=== PATIENT | female | born 1985 | race Caucasian/White ===

== ENCOUNTER → 2017-01-26 | Outpatient (CLI) | payer OTHER ==
[2017-01-26 11:30] LABS: CH 32.7; CHCM 33.6; HCT 37.3 % (34.0-46.0); HDW 3.13; HGB 12.5 gm/dL (11.4-16.0); MCH 32.8 pg (25.0-35.0); MCHC 33.5 g/dL (31.0-37.0); MCV 98.1 fL (80.0-100.0); Mean Platelet Volume 6.5; RDW 14.1 % (11.5-15.5); WBC 8.3 k/uL (3.8-10.6)
[2017-01-26 11:57] LABS: Non-African American GFR(MDRD) >60 (>60 ml/min/1.73 sqM)
== END | disposition home or self-care (01) ==
LOC: LABWHC1 10:05
PROVIDERS: ATTEND Obstetrics & Gynecology
DX: Z34.02 Encounter for supervision of normal first pregnancy, second trimester (principal); Z3A.00 Weeks of gestation of pregnancy not specified
CPT/HCPCS: 36415; 82565; 82950; 85027; 86780

== ENCOUNTER → 2018-02-28 | Outpatient (CLI) | payer OTHER ==
--- NOTE | 2018-02-28 16:10 | US ---
EXAMINATION TYPE: Transabdominal DATE OF EXAM: 07/30/17 COMPARISON: NONE CLINICAL HISTORY: Z36 CONFIRM DATES. EXAM PERFORMED: Transabdominal (TA) EXAM MEASUREMENTS: GESTATIONAL AGE / DATING Physician Established: Not yet established Dates by LMP: (9 weeks/5 days) EDC: 09/28/2017 Dates by First Scan: No previous this is first scan Dates by Current Scan for: (9 weeks/0 days) EDC: 10/03/2017 MATERNAL ANATOMY Uterus: 10.5 x 6.5 x 7.3 cm Right Ovary: 3.3 x 2.6 x 3.1 cm Left Ovary: 3.9 x 2.3 x 2.0 cm Post CDS / Adnexa: wnl Presence of free fluid: none GESTATION / SURVEY CRL: 2.3 cm (9 weeks/0 days) Yolk Sac (normal less than 6mm): 0.3 cm Heart Rate: 159 bpm Rhythm: Normal IUP: Viable IUP Date of LMP: 12/22/2017 Viable IUP that correlates with LMP. IMPRESSION: Single intrauterine gestation estimated at 9 weeks 0 days gestation based on the current ultrasound m easurements of the crown-rump length. Cardiac activity measures 159 minutes. Current calculated EDC b ased on this exam is 10/03/2017.
== END ==
LOC: RADUSWWP 14:05
PROVIDERS: ATTEND Obstetrics & Gynecology
DX: Z36.9 Encounter for antenatal screening, unspecified (principal); Z3A.09 9 weeks gestation of pregnancy
CPT/HCPCS: 76801

== ENCOUNTER → 2018-05-05 | Outpatient (CLI) | payer BC ==
--- NOTE | 2018-05-05 22:28 | US ---
EXAMINATION TYPE: US OB anatomy transabd DATE OF EXAM: 05/05/2018 COMPARISON: US 02/28/2018 HISTORY: 32-year-old female O36.62X0 Large for dates 2nd trimester Difficult exam due to head p osition. TECHNIQUE: Transabdominal (TA) FINDINGS: EXAM MEASUREMENTS: GESTATIONAL AGE / DATING Physician Established: (19 weeks/0 days) EDC: 09/28/2018 Dates by LMP: (19 weeks/0 days) EDC: 09/28/2018 Dates by First Scan: (18 weeks/3 days) EDC: 10/03/2018 Dates by Current Scan for: (20 weeks/0 days) (1 week 4 days greater growth than expected as compare d to 02/28/2018) EDC: 09/22/2018 SURVEY IUP: Single PLACENTA: Fundal PREVIA: No previa CHANDU: 15.9 cm Normal CERVICAL LENGTH (transabdominal: norm > 3.0cm): 3.3 cm BIOMETRY PRESENTATION: Vertex LIE: Longitudinal BPD: 4.7 cm 20 weeks / 2 days HC: 17.3 cm 19 weeks / 6 days AC: 14.4 cm 19 weeks / 6 days FL: 3.1 cm 19 weeks / 5 days ESTIMATED WEIGHT IN GRAMS: 309 grams ESTIMATED WEIGHT IN LBS/OZ: 0 lbs. 11 oz. WEIGHT PERCENTAGE BASED ON ESTABLISHED DATE: 98 % HC/AC: 1.20 Normal FL/AC: 22% HEART RATE: 142 bpm RHYTHM: Normal ANATOMY SEEN (within normal limits): Lateral Vent (< 1 cm) 0.8 cm Cisterna Magna (< 1.1 cm) 0.5 cm Nuchal Fold (< 0.6 cm) 0.4 cm Cerebellum (varies with age) 1.8 cm Choroid Plexus (bilateral) Midline Falx Four Chamber Heart Outflow tract: LVOT Stomach Situs Nose / Lips Diaphragm Kidneys (bilateral) Bladder Three Vessel Cord Longitudinal Spine Transverse Spine Arms (bilateral) Legs (bilateral) ANATOMY SUBOPTIMAL (due to position): Cavus Septi Pellucidi Outflow tract: RVOT Cord Insert (due to crowded structures) Winder Fixer notes: Viable IUP with an HENRRY of 09/22/2018 by this exam. IMPRESSION: 1. Single live intrauterine with estimated gestational age of 19 weeks 0 days by LMP. Curre nt ultrasound biometry is larger (20 weeks 0 days) placing the gestation at the 98th percentile for w eight. 2. As compared to the scan of 02/28/2018, there has been 1 week 4 days more growth than expected. 3. Continued follow-up is recommended to exclude LGA. 4. A few structures on the survey were suboptimally visualized (CSP, RVOT, and cord insertion). The remaining structures appear normal. Missed anatomy can be reassessed at follow-up.
== END | disposition home or self-care (01) ==
LOC: RADUSWWP 16:24
PROVIDERS: ATTEND Obstetrics & Gynecology
DX: O36.62X0 Maternal care for excessive fetal growth, second trimester, not applicable or unspecified (principal); Z3A.20 20 weeks gestation of pregnancy
CPT/HCPCS: 76811

== ENCOUNTER → 2018-05-13 | Outpatient (CLI) | payer BC ==
--- NOTE | 2018-05-13 14:34 | US ---
EXAMINATION TYPE: US OB Call Back DATE OF EXAM: 05/13/2018 COMPARISON: US last week May 05, 2018. CLINICAL HISTORY: Z36 Difficult of exam due to head position. Callback for CSP, RVOT and cord i nsert GESTATIONAL AGE / DATING Dates by Initial Survey Scan: (20 weeks/2 days) EDC: 09/28/2018 HEART RATE: 151 bpm RHYTHM: Normal ANATOMY SEEN (second anatomic survey look): Cavus Septi Pellucidi: WNL Outflow tracts:? RVOT Cord Insert : WNL Single live intrauterine gestation is redemonstrated. Normal Cephalad presentation to fetus is again seen. Cavum septum pellucidum and cord insertion are felt within normal limits during real-time scanning an d images saved. Right ventricular outflow tract felt within normal limits during real-time scanning l ess well to document on still images saved. IMPRESSION: As above.
== END | disposition home or self-care (01) ==
LOC: RADUSWWP 13:30
PROVIDERS: ATTEND Obstetrics & Gynecology
DX: Z53.9 Procedure and treatment not carried out, unspecified reason (principal)

== ENCOUNTER 2018-09-24 02:41 | Outpatient (CLI) | payer BC ==
[2018-09-24 03:40] VITALS: BP 126/80; PULSE 67; RESP 15; TEMP 97.3
--- NOTE | 2018-09-24 08:36 | P.MSEPDOC ---
Presenting Problems - Arrival Data Date of Arrival on Unit: 09/24/18 Time of Arrival on Unit: 02:41 Mode of Transport: Ambulatory - Complaint OB-Reason for Admission/Chief Complaint: Possible Onset of Labor Comment: Pt states that her contractions have been every 5-6 mins since 0000 Medical History - Information : 2 Para: 1 Term: 1 : 0 Abortions: Spontaneous or Elective: 0 Number of Living Children: 1 - Gestational Age Gestational Age by HENRRY (wks/days): 39 Weeks and 3 Days Review of Systems - Review of Systems Constitutional: No problems Breast: No problems ENT: No problems Cardiovascular: No problems Respiratory: No problems Gastrointestinal: No problems Genitourinary: No problems Musculoskeletal: No problems Neurological: No problems Skin: No problems Vital Signs - Temperature Temperature: 97.3 F Temperature Source: Temporal Artery Scan - Pulse Pulse Oximetery Pulse Rate: 67 Pulse Assessment Method: Automatic Cuff - Respirations Respiratory Rate: 15 Oxygen Delivery Method: Room Air - Blood Pressure Right Arm Blood Pressure: 126/80 Blood Pressure Mean: 95 Blood Pressure Source: Automatic Cuff Medical Screen Scoring (Pre) - Cervical Exam Dilation: 1-3 cm = 1 Membranes: Intact - Uterine Contractions Frequency: > 5 minutes apart = 1 Duration: > 40 seconds = 2 Intensity: N/A - Maternal Vital Signs Maternal Temperature: N/A Maternal Blood Pressure: N/A Signs of Preeclampsia: N/A Maternal Respirations: N/A - Pain Assessment Pain Location and Character: Abdomen Pain Scale Used: Numeric (1 - 10) Pain Intensity: 4 Pain Management Goal: 2 Pain Description: *Acute, Cramping Pain Radiation Location: none Pain Frequency: Intermittent Pain Duration: 2 Pain Duration Units: Hours Pain Behavior: Facial Grimacing Pain Aggravating Factors: Contractions - Maternal Trauma Maternal Trauma: N/A - Assessment Baseline FHR: 135 Heart Rate - NICHD Category: Category I (Normal) = 0 NST: Reactive Position: N/A Station: N/A - Total Score Total Score (Pre): 4 - Level of Risk Level of Risk: Low (0-5) Physician Notification (Pre) - Physician Notified Physician Notified Date: 09/24/18 Physician Notified Time: 02:59 Physician/Practitioner Notifed:: Dr Shabazz New Order Received: Yes Medical Screen Scoring (Post) - Cervical Exam Dilation: 1-3 cm = 1 Membranes: Intact - Uterine Contractions Frequency: > 5 minutes apart = 1 Duration: > 40 seconds = 2 Intensity: N/A - Maternal Vital Signs Maternal Temperature: N/A Maternal Blood Pressure: N/A Signs of Preeclampsia: N/A Maternal Respirations: N/A - Pain Assessment Pain Location and Character: Abdomen, Pelvic Pain Scale Used: Numeric (1 - 10) Pain Intensity: 5 Pain Management Goal: 2 Pain Description: *Acute, Cramping Pain Radiation Location: none Pain Frequency: Intermittent Pain Duration: 4 Pain Duration Units: Hours Pain Behavior: Facial Grimacing Pain Aggravating Factors: Contractions - Maternal Trauma Maternal Trauma: N/A - Assessment Heart Rate: 135 Heart Rate - NICHD Category: Category I (Normal) = 0 NST: Reactive Position: N/A Station: N/A - Total Score Total Score (Post): 4 - Post Treatment Level of Risk Post Treatment Level of Risk: Low (0-5) Disposition - Disposition OB Disposition: Discharge to home Discharge Date: 09/24/18 Discharge Time: 03:57 I agree with the RN Medical Screening Exam: Yes Risk & Benefit of care provided described in d/c instruction: Yes Diagnosis: FALSE LABOR AT OR AFTER 37 COMPLETED WEEKS OF GESTATION
== END 2018-09-24 03:55 | disposition home or self-care (01) ==
LOC: FBPOP 02:41
PROVIDERS: ATTEND Obstetrics & Gynecology
DX: O47.1 False labor at or after 37 completed weeks of gestation (principal); Z3A.39 39 weeks gestation of pregnancy
CPT/HCPCS: 59025; 99213

== ENCOUNTER 2018-09-29 05:58 | Inpatient (IN) | payer BC ==
[2018-09-29] MEDS ORDERED: LIDOCAINE 0.5% (PF) 5 MG/ML (50 ML SDV) SQ PRN (06:16)
[2018-09-29] MEDS ORDERED: CARBOPROST TROMETHAMINE 250 MCG/ML 1 ML AMP IM PRN (06:16)
[2018-09-29] MEDS ORDERED: OXYTOCIN 10 UNIT/ML 1 ML VIAL IM PRN (06:16)
[2018-09-29] MEDS ORDERED: TERBUTALINE 1 MG/ML VIAL SQ PRN (06:16)
[2018-09-29] MEDS ORDERED: METHYLERGONOVINE 0.2 MG/ML 1 ML AMP IM PRN (06:16)
[2018-09-29 06:22] VITALS: BMI 27.3
[2018-09-29] MEDS: LACTATED RINGERS 1,000 ML IV SCH ×2 (06:28→07:11)
[2018-09-29 06:30] LABS: Basophils # (A) 0.1 k/uL (0-0.2); Basophils % (A) 0 %; Eosinophils # (A) 0.3 k/uL (0-0.7); Eosinophils % (A) 2 %; HCT 44.3 % (34.0-46.0); HGB 14.9 gm/dL (11.4-16.0); Lymphocytes # (A) 2.4 k/uL (1.0-4.8); Lymphocytes % (A) 17 %; MCH 30.7 pg (25.0-35.0); MCHC 33.7 g/dL (31.0-37.0); Mean Platelet Volume 6.5; Monocytes # (A) 0.6 k/uL (0-1.0); Monocytes % (A) 4 %; Neutrophils # (A) 10.8 k/uL (1.3-7.7); Neutrophils % (A) 76 %; Platelet Count 351 k/uL (150-450); RBC 4.87 m/uL (3.80-5.40); RDW 14.1 % (11.5-15.5); WBC 14.3 k/uL (3.8-10.6)
[2018-09-29] MEDS ORDERED: fentaNYL (PF) 50 MCG/ML 5 ML AMP ONE (06:59)
[2018-09-29] MEDS ORDERED: ROPIVACAINE 5MG/ML 20ML VIAL ONE (06:59)
[2018-09-29] MEDS ORDERED: SODIUM CHLORIDE 0.9% 100 ML BAG ONE (06:59)
[2018-09-29] MEDS ORDERED: IBUPROFEN 800 MG TAB PO PRN (09:47)
[2018-09-29] MEDS ORDERED: BENZOCAINE/MENTHOL SPRAY 1 GM/SPRAY AEROSOL TOPICAL PRN (09:55)
[2018-09-29] MEDS ORDERED: diphenhydrAMINE 50 MG CAP PO PRN (09:55)
[2018-09-29] MEDS ORDERED: WITCH HAZEL 1 EACH MED..PAD TOPICAL PRN (09:55)
[2018-09-29] MEDS ORDERED: diphenhydrAMINE 25 MG CAP PO PRN (09:55)
[2018-09-29] MEDS ORDERED: diphenhydrAMINE 50 MG/ML 1 ML VIAL IVP PRN ×2 (09:55)
[2018-09-29] MEDS ORDERED: ZOLPIDEM 5 MG TAB PO PRN (09:55)
[2018-09-29] MEDS ORDERED: SIMETHICONE 80 MG CHEWABLE PO PRN (09:55)
[2018-09-29] MEDS ORDERED: LANOLIN CREAM 5 GM TUBE TOPICAL PRN (09:55)
[2018-09-29] MEDS ORDERED: OXYTOCIN 20 UNITS/1000 ML NS 1,000 ML IV SCH (10:00)
[2018-09-29] MEDS: IBUPROFEN 600 MG TAB PO PRN ×2 (10:11→18:43)
--- NOTE | 2018-09-29 10:56 | P.HPOB ---
History of Present Illness H&P Date: 09/29/18 Chief Complaint: Intrauterine at term: Active labor Bri is a 33-year-old at 40 weeks gestation who arrives in active labor making cervical change. At presentation she was dilated to 5 cm at artificial rupture membranes she was dilated to 9 cm her course has been unremarkable and she is with doing well this morning. An attempt to do an epidural was made but she was RE dilated past 9 cm still's only a test dose was given. Ultrasound recently showed baby in about the 90th percentile. Labs include O+ blood type Rh have been was negative. Rubella was immune. Hepatitis B surface antigen and RPR were both negative group B strep was also negative. On physical exam vital signs are stable and afebrile. Heart regular, lungs clear, extremities without pain. Abdomen is soft and nontender. Gravid uterus is noted. Category 1 tracing is noted. Contractions are noted every 3-4 minutes. Assessment intrauterine at term. Plan expect spontaneous vaginal delivery. Past Medical History Past Medical History: No Reported History History of Any Multi-Drug Resistant Organisms: None Reported Past Surgical History: Orthopedic Surgery Additional Past Surgical History / Comment(s): Right wrist surgery Past Anesthesia/Blood Transfusion Reactions: No Reported Reaction Past Psychological History: No Psychological Hx Reported Smoking Status: Never smoker Past Alcohol Use History: None Reported Past Drug Use History: None Reported - Past Family History Mother Family Medical History: Hypertension Father Family Medical History: Hypertension Medications and Allergies Home Medications Medication Instructions Recorded Confirmed Type Pnv No.95/Ferrous Fum/Folic AC 1 tab PO ONCE 09/24/18 09/29/18 History [ Multivitamin Tablet] Allergies Allergy/AdvReac Type Severity Reaction Status Date / Time ibuprofen [From Advil] Allergy Rash/Hives Verified 09/29/18 06:00 Exam Osteopathic Statement: *. No significant issues noted on an osteopathic structural exam other than those noted in the History and Physical/Consult. Vital Signs Temp Pulse Resp BP 09/29/18 10:12 97.8 F 55 L 16 135/65 09/29/18 09:57 67 16 149/64 09/29/18 09:42 97.2 F L 81 16 124/88 09/29/18 09:24 96.8 F L 18 09/29/18 09:12 96.5 F L 59 L 18 125/60 09/29/18 06:05 96.4 F L 87 20 115/83 Intake and Output 09/28/18 09/29/18 09/29/18 22:59 06:59 14:59 Intake Total 1600 Balance 1600 Intake: IV 1600 Other: Weight 76.884 kg Results Result Diagrams: 09/29/18 06:20 Abnormal Lab Results - Last 24 Hours (Table) 09/29/18 Range/Units 06:20 WBC 14.3 H (3.8-10.6) k/uL Neutrophils # 10.8 H (1.3-7.7) k/uL
--- NOTE | 2018-09-29 10:58 | P.PROBDLV ---
Vaginal Delivery Note - . Vaginal Delivery Note: Patient progressed complete and pushing with spontaneous vaginal delivery of a viable female over a second-degree perineal laceration. Falling deliver the head a nuchal cord 1 was noted and it should be noted that the baby while she was pushing initially was right occiput posterior but did rotate all the way to right occiput anterior by the time the baby's head came out. Once nuchal cord 1 was noted and reduced, the remainder the baby was easily delivered with gentle downward and upward traction. Mouth nares were then bulb suctioned and baby was placed on mother's abdomen where the umbilical cord was allowed to pulsate for 30 seconds prior to clamping and cutting. Once this was accomplished nursery personnel was present and assumed care. Placenta was then delivered intact and Pitocin was added to the IV. Second-degree midline laceration was then repaired with 3-0 Vicryl following 1% Xylocaine for analgesia in usual fashion. There was a small left periurethral skin separation that she requested not be repaired as it was not bleeding. scores are pending weight was 8 lbs. 8 oz. Both mother and baby are stable following delivery.
[2018-09-29] MEDS: ACETAMINOPHEN TAB 325 MG TAB PO PRN (13:43)
[2018-09-29] MEDS: SENNOSIDES-DOCUSATE SODIUM 1 EACH TAB PO SCH (18:42)
--- NOTE | 2018-09-30 07:51 | P.DS ---
Providers Date of admission: 09/29/18 06:06 Expected date of discharge: 09/30/18 Attending physician: Marck Plunkett Primary care physician: Stated None Procedures: Bri is doing very well day 1. She is involuting, voiding and she is tolerating her diet. She voices no complaints and requests discharged home today. Vital signs are stable and afebrile. Heart regular, lungs clear, extremities without pain. Abdomen soft nontender uterus is firm below the umbilicus. Lochia is reported be light. Discharge instructions were thoroughly reviewed and all questions were answered for her prior to discharge. She'll follow up with me in 6 weeks. Prescription for Motrin for it pharmacy. All the questions are answered and she is stable for discharge this time. Patient Condition at Discharge: Good Plan - Discharge Summary New Discharge Prescriptions: No Action Pnv No.95/Ferrous Fum/Folic AC [ Multivitamin Tablet] 1 tab PO ONCE Discharge Medication List Pnv No.95/Ferrous Fum/Folic AC [ Multivitamin Tablet] 1 tab PO ONCE 09/24/18 [History]
[2018-09-30] MEDS: SENNOSIDES-DOCUSATE SODIUM 1 EACH TAB PO SCH ×2 (08:09→20:14)
[2018-09-30] MEDS: IBUPROFEN 600 MG TAB PO PRN (08:10)
[2018-09-30] MEDS: ACETAMINOPHEN TAB 325 MG TAB PO PRN (23:13)
[2018-09-30 23:35] VITALS: PULSE 53; RESP 16
[2018-10-01] MEDS: LACTATED RINGERS 1,000 ML IV SCH (02:30)
[2018-10-01] MEDS: SENNOSIDES-DOCUSATE SODIUM 1 EACH TAB PO SCH (07:39)
[2018-10-01] MEDS: IBUPROFEN 600 MG TAB PO PRN (07:45)
[2018-10-01 08:51] VITALS: BP 118/79; TEMP 98.5
== END 2018-10-01 10:42 | disposition home or self-care (01) | DRG 807 ==
LOC: FBPOP 05:58 → 4FBP 06:06
PROVIDERS: ADMIT Obstetrics & Gynecology; ATTEND Obstetrics & Gynecology
PROC: 10E0XZZ Delivery of Products of Conception, External Approach (ICD-10-PCS; principal; 2018-09-29)
PROC: 0KQM0ZZ Repair Perineum Muscle, Open Approach (ICD-10-PCS; 2018-09-29)
PROC: 00HU33Z Insertion of Infusion Device into Spinal Canal, Percutaneous Approach (ICD-10-PCS; 2018-09-29)
PROC: 3E0R3BZ Introduction of Anesthetic Agent into Spinal Canal, Percutaneous Approach (ICD-10-PCS; 2018-09-29)
DX: O69.81X0 Labor and delivery complicated by cord around neck, without compression, not applicable or unspecified (principal); Z37.0 Single live birth; O70.1 Second degree perineal laceration during delivery; Z3A.40 40 weeks gestation of pregnancy; Z88.6 Allergy status to analgesic agent; Z82.49 Family history of ischemic heart disease and other diseases of the circulatory system
CPT/HCPCS: 59025; 85025; 86850; 86900; 86901; 99213

== ENCOUNTER 2022-09-16 18:47 | Emergency (ER) | payer BC ==
[2022-09-16 19:39] VITALS: BP 140/99; PULSE 95; RESP 18; TEMP 98.2
--- NOTE | 2022-09-16 19:44 | ED ---
Female Urogenital HPI - General Chief complaint: Vaginal Bleeding Stated complaint: 11wks spotting Time Seen by Provider: 09/16/22 19:41 Source: patient, RN notes reviewed, old records reviewed Mode of arrival: ambulatory Limitations: no limitations - History of Present Illness Initial comments: This is a 37-year-old female . Patient presents today for evaluation of bleeding and around 10 weeks . Some cramping no pain no other complaints no medical history takes no medications Complaint: vaginal bleeding, pelvic pain, other (Positive 10 weeks) -: days(s) Location: perineum Radiation: non-radiating Severity: mild Severity scale (1-10): 3 Quality: cramping Consistency: intermittent Improves with: none Worsens with: intercourse Last Menstrual Period: 06/27/22 Patient : Yes Associated Symptoms: vaginal bleeding - Related Data Previous Rx's Medication Instructions Recorded Acetaminophen-Codeine 300-30mg 1 tab PO Q6H PRN 3 Days #12 tablet 09/20/22 [Tylenol w/codeine #3] Allergies Allergy/AdvReac Type Severity Reaction Status Date / Time ibuprofen [From Advil] Allergy Rash/Hives Verified 09/20/22 06:39 Review of Systems ROS Statement: Those systems with pertinent positive or pertinent negative responses have been documented in the HPI. ROS Other: All systems not noted in ROS Statement are negative. Past Medical History Past Medical History: No Reported History History of Any Multi-Drug Resistant Organisms: None Reported Past Surgical History: Orthopedic Surgery Additional Past Surgical History / Comment(s): Right wrist surgery Past Anesthesia/Blood Transfusion Reactions: No Reported Reaction Past Psychological History: No Psychological Hx Reported Smoking Status: Never smoker Past Alcohol Use History: None Reported Past Drug Use History: None Reported - Past Family History Mother Family Medical History: Hypertension Father Family Medical History: Hypertension General Exam Limitations: no limitations General appearance: alert, in no apparent distress, anxious Head exam: Present: atraumatic, normocephalic, normal inspection Eye exam: Present: normal appearance, PERRL, EOMI. Absent: scleral icterus, conjunctival injection, periorbital swelling ENT exam: Present: normal exam, mucous membranes moist Neck exam: Present: normal inspection. Absent: tenderness, meningismus, lymphadenopathy Respiratory exam: Present: normal lung sounds bilaterally. Absent: respiratory distress, wheezes, rales, rhonchi, stridor Cardiovascular Exam: Present: regular rate, normal rhythm, normal heart sounds. Absent: systolic murmur, diastolic murmur, rubs, gallop, clicks GI/Abdominal exam: Present: soft, normal bowel sounds. Absent: distended, tenderness, guarding, rebound, rigid Extremities exam: Present: normal inspection, full ROM, normal capillary refill. Absent: tenderness, pedal edema, joint swelling, calf tenderness Back exam: Present: normal inspection Neurological exam: Present: alert, oriented X3, CN II-XII intact Psychiatric exam: Present: normal affect, normal mood Skin exam: Present: warm, dry, intact, normal color. Absent: rash Course Vital Signs 09/16/22 19:35 Temperature 98.2 F Pulse Rate 95 Respiratory 18 Rate Blood Pressure 140/99 O2 Sat by Pulse 99 Oximetry - Reevaluation(s) Reevaluation #1: 09/16/22 23:53 Medical records reviewed Reevaluation #2: 09/16/22 23:53 Patient has no change in symptoms here in the ER Reevaluation #3: 09/16/22 23:53 Patient informed results questions are answered Reevaluation #4: 09/16/22 23:53 Was pt. sent in by a medical professional or institution? @ -no Did you speak to anyone other than the patient for history? @ -no Did you review nursing and triage notes? @ -agree Were old charts reviewed? @ -no Differential Diagnosis? @ -prior EKG interpreted by me (3pts min.)? @ -no X-rays interpreted by me (1pt min.)? @ -no CT interpreted by me (1pt min.)? @ -no U/S interpreted by me (1pt. min.)? @ -no What testing was considered but not performed? (CT, X-rays, U/S, labs)? Why? @ -no What meds were considered but not given? Why? @ -no Did you discuss the management of the patient with other professionals? @ -no Did you reconcile home meds? @ -no Was smoking cessation discussed for >3mins.? @ -no Was critical care preformed (if so, how long)? @ -no Were there social determinants of health that impacted care today? How? (Homelessness, low income, unemployed, alcoholism, drug addiction, transportation, low edu. Level, literacy, decrease access to med. care, shelter, rehab)? @ -no Was there de-escalation of care discussed even if they declined? (Discuss DNR or withdrawal of care, Hospice)? @ -no What co-morbidities impacted this encounter? (DM, HTN, Smoking, COPD, CAD, Cancer, CVA, Hep., AIDS, mental health diagnosis, sleep apnea, morbid obesity)? @ -none Was patient admitted / discharged? @ -37 female urogenital bleeding and . Patient has missed , miscarriage here in the emergency department active. Patient will follow-up with OB on an outpatient basis Discharged Undiagnosed new problem with uncertain prognosis? @ -no Drug Therapy requiring intensive monitoring for toxicity (Heparin, Nitro, Insulin, Cardizem)? @ -no Were any procedures done? @ -no Diagnosis/symptom? @ -Missed , miscarriage Acute, or Chronic, or Acute on Chronic? @ -no Uncomplicated (without systemic symptoms) or Complicated (systemic symptoms)? @ -uncomplicated Side effects of treatment? @ -no Exacerbation, Progression, or Severe Exacerbation] @ -no Poses a threat to life or bodily function? @ -Yes if ectopic Reevaluation #5: 09/16/22 23:53 Differential Abdominal Pain Women: Appendicitis, Cholecystitis, diverticulosis, ischemic bowel, pancreatitis, hepatitis, UTI, gastroenteritis, AAA, incarcerated hernia, bowel obstruction, constipation, inflammatory bowel, hepatitis, peptic ulcer disease, splenic infarction, perforated viscus, vulvitis, ovarian torsion, PID, kidney stone, placenta abruption, this is not meant to be an all-inclusive list Medical Decision Making - Medical Decision Making 37 female in to ER with missed , incomplete . Miscarriage. Patient will follow-up with OB and can be discharged home - Radiology Data Radiology results: report reviewed (Ultrasound does show demise), image reviewed Disposition Clinical Impression: Missed , Vaginal bleeding, Incomplete Disposition: HOME SELF-CARE Condition: Good Instructions (If sedation given, give patient instructions): Miscarriage (ED) Is patient prescribed a controlled substance at d/c from ED?: No Referrals: None,Stated [Primary Care Provider] - 1-2 days Time of Disposition: 21:20
--- NOTE | 2022-09-16 20:36 | US ---
EXAMINATION TYPE: Transabdominal DATE OF EXAM: 09/16/2022 8:23 PM COMPARISON: NONE CLINICAL INDICATION: Female, 37 years old with history of pain; bleeding started Saturday and has incre ased with clots today, EXAM PERFORMED: OBTA/OBTV EXAM MEASUREMENTS: GESTATIONAL AGE / DATING Physician Established: (10 weeks/6 days) EDC: 04/08/2023 Dates by LMP: LMP unknown Dates by First Scan: No previous this is first scan Dates by Current Scan for: (8 weeks/4 days) MATERNAL ANATOMY Uterus: 9.6 x 6.4 x 5.8cm, retroverted Right Ovary: 2.9 x 2.6 x 2.6cm Left Ovary: 2.7 x 1.5 x 1.6cm Post CDS / Adnexa: wnl Presence of free fluid: no Presence of corpus luteal cyst: not seen Presence of subchorionic bleed: no GESTATION / SURVEY CRL: 2.8cm (8 weeks/4 days) MSD: irregular edges with internal debris noted Yolk Sac (normal less than 6mm): not seen Heart Rate: 0 bpm IUP: No cardiac activity noted on today's scan. Question demise. Beta HcG (if available): pending IMPRESSION: Intrauterine gestation without evidence for cardiac activity and with discordant discordant dates and debris within the gestational sac. Findings are concerning for demise.
== END 2022-09-16 21:42 | disposition home or self-care (01) ==
LOC: EC 18:47
DX: O02.1 Missed abortion (principal); O46.91 Antepartum hemorrhage, unspecified, first trimester; O03.4 Incomplete spontaneous abortion without complication; Z88.6 Allergy status to analgesic agent; Z3A.11 11 weeks gestation of pregnancy
CPT/HCPCS: 76801; 76817; 99284

== ENCOUNTER → 2022-09-18 | Outpatient (CLI) | payer BC ==
[2022-09-18 15:02] LABS: Basophils # (A) 0.04 X 10*3/uL (0.00-0.10); Basophils % (A) 0.5 %; Eosinophils # (A) 0.11 X 10*3/uL (0.04-0.35); Eosinophils % (A) 1.4 %; HCT 40.5 % (37.2-46.3); Immature Grans, Automated 0.3 %; Lymphocytes # (A) 1.53 X 10*3/uL (0.90-5.00); Lymphocytes % (A) 19.8 %; MCH 29.6 pg (27.0-32.0); MCHC 32.1 g/dL (32.0-37.0); MCV 92.3 fL (80.0-97.0); Mean Platelet Volume 8.8 fL (9.5-12.2); Monocytes % (A) 6.5 %; NRBC Per 100 WBC 0 /100 WBCS (0.0-0.0); Neutrophils # (A) 5.52 X 10*3/uL (1.80-7.70); Neutrophils % (A) 71.5 %; Platelet Count 347 X 10*3/uL (140-440); RBC 4.39 X 10*6/uL (4.10-5.20); RDW 12.1 % (11.5-14.5); WBC 7.72 X 10*3/uL (4.50-10.00)
== END | disposition home or self-care (01) ==
LOC: LABPAT 12:40
PROVIDERS: ATTEND Obstetrics & Gynecology
DX: Z01.812 Encounter for preprocedural laboratory examination (principal)
CPT/HCPCS: 36415; 84702; 85025

== ENCOUNTER 2022-09-20 06:16 | Day surgery (SDC) | payer BC ==
[2022-09-18 09:22] VITALS: BMI 25.3
--- NOTE | 2022-09-19 07:40 | P.HPOB ---
History of Present Illness H&P Date: 09/19/22 Chief Complaint: Missed This patient is a pleasant 37-year-old 2 para 1 female who presented to the emergency department this last weekend with complaints of vaginal bleeding, known , and cramping. Patient had a previous ultrasound that showed a viable . We did change her gestational age based on that ultrasound. Patient went to the emergency department with this bleeding and showed a nonviable 8-1/2 week intrauterine . I discussed options with the patient including continued expected management versus suction D&C. She like to proceed with D&C at this time. Review of Systems Genitourinary: Reports as per HPI, Reports abnormal vaginal bleeding, Reports Past Medical History Past Medical History: No Reported History Additional Past Medical History / Comment(s): patient's had a previous vaginal delivery of a 7 lbs. 4 oz. baby girl. History of Any Multi-Drug Resistant Organisms: None Reported Past Surgical History: Orthopedic Surgery Additional Past Surgical History / Comment(s): Right wrist surgery Past Anesthesia/Blood Transfusion Reactions: No Reported Reaction Past Psychological History: No Psychological Hx Reported Smoking Status: Never smoker Past Alcohol Use History: None Reported Past Drug Use History: None Reported - Past Family History Mother Family Medical History: Hypertension Father Family Medical History: Hypertension Medications and Allergies Home Medications Medication Instructions Recorded Confirmed Type No Known Home Medications 09/18/22 09/18/22 History Allergies Allergy/AdvReac Type Severity Reaction Status Date / Time ibuprofen [From Advil] Allergy Rash/Hives Verified 09/18/22 09:16 Exam - OBG Physical Exam Abdomen: bowel sounds normal, no diffuse tenderness, no bruit present, no guarding noted, no hepatomegaly, no splenomegaly, no mass Vulva: both: normal Vagina: normal moisture, no discharge Cervix: no lesion, no discharge Uterus: normal size, normal contour Results Ultrasound done at [facility] shows an 8-1/2 week intrauterine is nonviable Assessment and Plan Assessment: This is a pleasant 37-year-old 2 para 1 female with a nonviable 8-1/2 week intrauterine consistent with a missed . Patient is requesting suction D&C for treatment at this time. I have discussed the surgery and risks with the patient including risk of infection, bleeding, possible uterine perforation. All the patient's questions are answered and a written consent is obtained. (1) Missed Status: Acute Code(s): O02.1 - MISSED SNOMED Code(s): 95622131
[~2022-09-20 06:16] MED LIST: DEXAMETHASONE SOD PHOSPHATE 4 MG/ML 1 ML VIAL IV ONE; HYDROmorphone 0.5 MG/0.5 ML SYRINGE IVP PRN; LACTATED RINGERS 1,000 ML IV SCH; LIDOCAINE 1% (10MG/ML) FOR IV START INTRADERMA PRN; MIDAZOLAM 2 MG/2 ML VIAL IV PRN; ONDANSETRON 4 MG/2 ML VIAL IVP ONE; Pre Op ABX Message 1 EACH MISC MISCELLANE ONE
[2022-09-20 06:59] VITALS: TEMP 97.4
[2022-09-20] MEDS ORDERED: ACETAMINOPHEN IV (For NPO) 1,000 MG/100 ML VIAL ONE (07:14)
[2022-09-20] MEDS ORDERED: LIDOCAINE 2% INJ 20 MG/ML (2 ML VIAL) ONE (07:14)
[2022-09-20] MEDS ORDERED: fentaNYL (PF) 50 MCG/ML 2 ML AMP ONE (07:14)
[2022-09-20] MEDS ORDERED: PROPOFOL 10 MG/ML 20 ML VIAL IV ONE (07:14)
[2022-09-20] MEDS ORDERED: MIDAZOLAM 2 MG/2 ML VIAL ONE (07:14)
[2022-09-20] MEDS ORDERED: KETOROLAC 30 MG/ML 1 ML VIAL ONE (07:14)
--- NOTE | 2022-09-20 07:50 | P.OP ---
Date of Procedure: 09/20/22 Preoperative Diagnosis: Missed 8 and half weeks Postoperative Diagnosis: Same Procedure(s) Performed: Suction D&C Anesthesia: other (LMA) Surgeon: Srinivasan Ott Estimated Blood Loss (ml): 100 Urine output (ml): 100 Pathology: other (Products of conception) Condition: stable Disposition: PACU Indications for Procedure: Please see dictated H&P for intimate details of this patient's admission. Brief summary is a pleasant 37-year-old 2 para 1 female estimated gestational age a half weeks with nonviable . Patient was in the emergency department with spotting she previously had a heartbeat however subsequent follow-up showed no cardiac activity consistent with a missed . Patient I discussed options and she elected to proceed with suction D&C for treatment. Patient does understand the surgery and risks and risks of infection, bleeding, possible uterine perforation. All the patient's questions are answered and a written consent is obtained. Operative Findings: Patient had a large amount of products of conception that appeared degenerated Description of Procedure: This patient is taken to the operating room where she is laid in the supine pos ition. She subsequently undergoes general anesthesia without incident. With an adequate level of anesthesia she's placed in dorsal lithotomy position. She has a vaginal and perineal prep and drape. Examination under anesthesia shows a mid position uterus slightly enlarged. I drain the bladder for 100 mL of clear urine. Weighted speculum was placed in the posterior vagina. The anterior lip of the cervix is then grasped with an Allis clamp. The cervix is easily dilated to allow a 9 curved suction curette easily and the uterine cavity. Suction is applied and a large amount of tissue is removed. Multiple passes are made to no further tissue was noted. A gentle but thorough 4 quadrant curettage is then done again no further tissue was noted. A final pass of the suction curet is done. This time bleeding subsides. Procedure is then ended. The weighted speculum and Allis clamp are removed. All counts are correct 3. There are no complications. Patient is awakened from anesthesia and taken recovery room in satisfactory condition.
[2022-09-20 08:05] VITALS: RESP 16
[2022-09-20 09:03] VITALS: BP 118/75; PULSE 60
== END 2022-09-20 09:18 | disposition home or self-care (01) ==
LOC: OR 06:16
PROVIDERS: ATTEND Obstetrics & Gynecology
DX: O02.1 Missed abortion (principal); Z98.890 Other specified postprocedural states; Z82.49 Family history of ischemic heart disease and other diseases of the circulatory system; Z79.899 Other long term (current) drug therapy
CPT/HCPCS: 86900; 86901; 88305; 86850; 59820; J2250; J1100; J2405; J3010; J1885; J0131; J2704; J2001

== ENCOUNTER 2024-02-19 15:36 | Inpatient (IN) | payer BC ==
[2024-02-19] MEDS ORDERED: DINOPROSTONE 10 MG INSERT.ER VAGINAL ONE (15:46)
--- NOTE | 2024-02-19 17:24 | P.HPOB ---
History of Present Illness H&P Date: 02/19/24 Chief Complaint: Induction of labor Ms. Jasmine is a 38 year old at 38 weeks and 3 days with EDC of 03/01/2024 based on LMP consistent with 9 week US who presents for medical induction of labor for chronic hypertension. She has not required initiation of antihypertensives during the . The patient is also Advanced Maternal Age and has a large for gestational age fetus measuring in the 99%ile for gestational age at a 32 week growth US. Obstetric history: 2 FTVD, no complications work-up: blood type O positive, antibody screen negative, rubella immune, VDRL non-reactive, HIV negative, HBsAg negative, HCV non-reactive, gonorrhea negative, chlamydia negative, 1 hour GTT wnl, GBS positive. s/p Tdap. Past Medical History Past Medical History: No Reported History History of Any Multi-Drug Resistant Organisms: None Reported Past Surgical History: Orthopedic Surgery Additional Past Surgical History / Comment(s): Right wrist surgery 2006. D&C in 2022. Past Anesthesia/Blood Transfusion Reactions: No Reported Reaction Past Psychological History: No Psychological Hx Reported Smoking Status: Never smoker Past Alcohol Use History: None Reported Past Drug Use History: None Reported - Past Family History Mother Family Medical History: Hypertension Father Family Medical History: Hypertension Medications and Allergies Home Medications Medication Instructions Recorded Confirmed Type Vit No.179/Iron/Folic 1 tab PO ONCE 02/19/24 02/19/24 History [ Tablet] RX: Aspirin [Adult Low Dose 1 tab PO ONCE 02/19/24 02/19/24 History Aspirin EC] Allergies Allergy/AdvReac Type Severity Reaction Status Date / Time ibuprofen [From Advil] Allergy Rash/Hives Verified 02/19/24 15:44 Exam Vital Signs Temp Pulse Resp BP Pulse Ox 02/19/24 15:39 96.8 F L 87 17 134/78 100 Intake and Output 02/19/24 02/19/24 02/19/24 06:59 14:59 22:59 Other: Weight 81.193 kg Focused physical exam is performed. This is a healthy-appearing in no apparent distress. Breathing is non-labored. Abdomen is gravid and non-tender. Cervical exam is 1/long/high. Extremities non-tender and non-edematous. heart tones are reactive and reassuring on non-stress test. The risks (including bleeding, infection, ruptured membranes, onset of labor, cervical tears or Dilapan-S breaking) and benefits of the procedure were discussed with the patient. Written informed consent was obtained. A sterile lighted speculum was placed into the vagina and the cervix was visualized. The cervix and vagina was cleaned with antiseptic solution. A forcep was used to grasp the cervical lip to straighten the cervical canal another ring forcep was used to grasp the handle of the Dilapan-S billy and insert the billy through the external cervical os gradually and without force. This was repeated until adequate Dilapan-S rods were inserted. A total number of 5 rods were inserted. At the conclusion of the procedure there was no vaginal bleeding. The speculum and instruments were removed. Assessment and Plan Assessment: 38 year old at 38 weeks and 3 days presenting for medical induction of labor for chronic hypertension Plan: Admit, regular diet until midnight, clear liquid diet after midnight. NST at 1900. Begin oxytocin at 0600 with continuous monitoring. Anticipate vaginal delivery.
[2024-02-19] MEDS ORDERED: OXYTOCIN 10 UNIT/ML 1 ML VIAL IM PRN (17:32)
[2024-02-19] MEDS ORDERED: miSOPROStoL 200 MCG TAB PO PRN (17:32)
[2024-02-19] MEDS ORDERED: miSOPROStoL 200 MCG TAB RECTAL PRN (17:32)
[2024-02-19] MEDS ORDERED: TRANEXAMIC 1,000 MG/100ML-NACL 1,000 MG in EMPTY BAG 1 BAG IV PRN (17:32)
[2024-02-19] MEDS ORDERED: CARBOPROST TROMETHAMINE 250 MCG/ML 1 ML AMP IM PRN (17:32)
[2024-02-19] MEDS ORDERED: METHYLERGONOVINE 0.2 MG/ML 1 ML AMP IM PRN (17:32)
[2024-02-19] MEDS ORDERED: TERBUTALINE 1 MG/ML VIAL SQ PRN (17:32)
[2024-02-20] MEDS: PENICILLIN G POTASSIUM 5,000,000 UNIT in DEXTROSE 5% IN WATER 100 ML IVPB ONE (04:15)
[2024-02-20] MEDS: LACTATED RINGERS 1,000 ML IV SCH (04:16)
[2024-02-20 05:02] LABS: Anisocytosis Slight; Basophils % (A) 0 %; Eosinophils # (A) 0.1 k/uL (0-0.7); Eosinophils % (A) 1 %; HCT 30.1 % (34.0-46.0); HGB 9.7 gm/dL (11.4-16.0); Hypochromasia Slight; Lymphocytes # (A) 1.6 k/uL (1.0-4.8); Lymphocytes % (A) 13 %; MCH 23.8 pg (25.0-35.0); MCHC 32.2 g/dL (31.0-37.0); MCV 73.9 fL (80.0-100.0); Mean Platelet Volume 7.1; Microcytosis Moderate; Monocytes # (A) 0.5 k/uL (0-1.0); Monocytes % (A) 4 %; Neutrophils # (A) 9.9 k/uL (1.3-7.7); Neutrophils % (A) 81 %; Platelet Count 440 k/uL (150-450); Poikilocytosis Slight; RBC 4.07 m/uL (3.80-5.40); RDW 18.3 % (11.5-15.5); WBC 12.3 k/uL (3.8-10.6)
[2024-02-20] MEDS: OXYTOCIN 30 UNITS/500 ML NS 30 UNIT in SALINE 1 500ML.BAG IV SCH (06:02)
[2024-02-20] MEDS: PENICILLIN G POTASSIUM 2,500,000 UNIT in DEXTROSE 5% IN WATER 100 ML IVPB SCH (07:58)
[2024-02-20] MEDS ORDERED: SODIUM CHLORIDE 0.9% 250 ML BAG ONE (09:41)
[2024-02-20] MEDS ORDERED: ROPIVACAINE 5 MG/ML 30 ML VIAL ONE (09:41)
[2024-02-20] MEDS ORDERED: fentaNYL (PF) 50 MCG/ML 5 ML AMP ONE (09:41)
[2024-02-20] MEDS: LIDOCAINE 0.5% (PF) 5 MG/ML (50 ML SDV) SQ PRN (12:24)
--- NOTE | 2024-02-20 12:53 | P.PROBDLV ---
Vaginal Delivery Note - . Vaginal Delivery Note: DATE OF SERVICE: 02/20/2024 PROCEDURE: Normal Vaginal Delivery ATTENDING: Dr. Renetta Stone MD ESTIMATED BLOOD LOSS: 150 mL FINDINGS: VMI, Apgars 7/9. Weight 7 pounds and 9 ounces (3440 grams) PROCEDURE: Ms. Jasmine is a 38 year old at 38 weeks and 4 days presenting to labor and delivery for medical induction of labor for chronic hypertension. For further details, please review the admitting H&P. The patient had Dilapan-S placed yesterday evening. Pitocin was titrated per protocol in the morning. The Dilapan was removed and AROM was performed at 735 revealing clear amniotic fluid. The patient received epidural anesthesia per her request. The patient was completely dilated at 1157. She pushed effectively with Category II heart tones making good progress with expulsive efforts. A viable male infant was brought to a [facility] and the head delivered. One nuchal cord was reduced and the infant was delivered at 1212. The was placed on the maternal abdomen and bulb suctioned. The was noted to be spontaneously crying. Cord was cla mped and cut after a 30-second delay. The was handed off to the pediatric team. Placenta was delivered whole with gentle cord traction at 1214. Oxytocin was started to facilitate uterine tone. Uterine fundus was found to be firm and below the umbilicus upon fundal massage. Thorough examination of the cervix, vagina, periurethral area, and perineum revealed a second degree perineal laceration. The perineum was infiltrated with lidocaine and repaired with 2-0 Vicryl in the usual fashion. The patient is stable and allowed to begin the bonding process.
[2024-02-20] MEDS ORDERED: SIMETHICONE 80 MG CHEWABLE PO PRN (13:05)
[2024-02-20] MEDS ORDERED: BENZOCAINE/MENTHOL SPRAY 1 GM/SPRAY AEROSOL TOPICAL PRN (13:05)
[2024-02-20] MEDS ORDERED: HYDROCORTISONE 2.5% RECTAL CREAM 30 GM TUBE RECTAL PRN (13:05)
[2024-02-20] MEDS ORDERED: diphenhydrAMINE 50 MG CAP PO PRN (13:05)
[2024-02-20] MEDS ORDERED: ZOLPIDEM 5 MG TAB PO PRN (13:05)
[2024-02-20] MEDS ORDERED: LANOLIN CREAM 1 GM TUBE TOPICAL PRN (13:05)
[2024-02-20] MEDS ORDERED: diphenhydrAMINE 25 MG CAP PO PRN (13:05)
[2024-02-20] MEDS ORDERED: diphenhydrAMINE 50 MG/ML 1 ML VIAL IVP PRN ×2 (13:05)
[2024-02-20] MEDS: IBUPROFEN 800 MG TAB PO SCH (13:13)
[2024-02-20] MEDS: ACETAMINOPHEN TAB 500 MG TAB PO SCH (16:19)
[2024-02-21 06:17] LABS: Anisocytosis Slight; Basophils % (A) 0 %; Eosinophils # (A) 0.1 k/uL (0-0.7); Eosinophils % (A) 1 %; HCT 26.8 % (34.0-46.0); HGB 8.4 gm/dL (11.4-16.0); Hypochromasia Marked; Lymphocytes # (A) 1.6 k/uL (1.0-4.8); Lymphocytes % (A) 15 %; MCH 24.1 pg (25.0-35.0); MCHC 31.5 g/dL (31.0-37.0); MCV 76.4 fL (80.0-100.0); Mean Platelet Volume 6.8; Microcytosis Slight; Monocytes # (A) 0.5 k/uL (0-1.0); Monocytes % (A) 4 %; Neutrophils # (A) 8.5 k/uL (1.3-7.7); Neutrophils % (A) 78 %; Platelet Count 325 k/uL (150-450); RDW 18.1 % (11.5-15.5); WBC 10.8 k/uL (3.8-10.6)
[2024-02-21] MEDS: SENNOSIDES-DOCUSATE SODIUM 1 EACH TAB PO SCH (07:52)
[2024-02-21 08:48] VITALS: BP 129/84; PULSE 60; RESP 18; TEMP 98.2
--- NOTE | 2024-02-21 09:02 | P.DS ---
Providers Date of admission: 02/19/24 15:36 Expected date of discharge: 02/21/24 Attending physician: Renetta Stone MD Primary care physician: Stated None Hospital Course: 38 year old now PPD#1 s/p normal vaginal delivery after medical induction of labor for chronic hypertension. Delivery was uncomplicated. The patient is doing well this morning and had no acute events overnight. She has no complaints this morning. She reports minimal lochia, passing flatus, voiding without difficulty, ambulating, and eating/drinking without nausea or vomiting. Blood pressure have been normotensive in the course without med ications. doing well at bedside, s/p circumcision, breast-feeding is going well. She denies chest pain, shortness of breathing, fevers, or chills overnight. She denies pain or swelling in the legs. restrictions are reviewed with the patient including pelvic rest for 6 weeks. The patient is encouraged to call the office if she experiences any heavy bleeding, foul- smelling discharge, breast complaints, or any if she has any other concerns. She will follow up in the office with in 1 week for blood pressure check. She plans to use Motrin and Tylenol OTC as needed for pain. All questions are answered. Assessment: 38 year old now PPD#1 s/p normal vaginal delivery Patient Condition at Discharge: Good Plan - Discharge Summary New Discharge Prescriptions: New Ferrous Sulfate [Iron (65 MG Elemental)] 325 mg PO DAILY #30 tab No Action Vit No.179/Iron/Folic [ Tablet] 1 tab PO ONCE Aspirin [Adult Low Dose Aspirin EC] 1 tab PO ONCE Discharge Medication List Aspirin [Adult Low Dose Aspirin EC] 1 tab PO ONCE 02/19/24 [History] Vit No.179/Iron/Folic [ Tablet] 1 tab PO ONCE 02/19/24 [History] Ferrous Sulfate [Iron (65 MG Elemental)] 325 mg PO DAILY #30 tab 02/21/24 [Rx] Follow up Appointment(s)/Referral(s): Renetta Stone MD [STAFF PHYSICIAN] - 03/30/24 10:15 am (Also follow up in office next week for BLOOD PRESSURE CHECK) Activity/Diet/Wound Care/Special Instructions: Instructions 1. Do not begin any exercise program for 3 weeks. 2. Do not resume sexual relations for 6 weeks or longer if uncomfortable. 3. You may take tub baths or showers at any time. 4. You may use tampons if desired after 6 weeks. 5. Keep any areas repaired with stitches clean and dry. 6. If you are not nursing, wear a good fitting, supportive bra during the day and limit fluid intake for at least 1 week to prevent breast engorgement. 7. Call the office, , within the next week to make appointment for your 6 week checkup if it has not already been made. 8. Report any of the following occurrences to the doctor promptly: a. Heavy, excessive bleeding b. Chills, fever c. Burning or frequency of urination d. Pain or redness and breasts if nursing e. Increasing pain or swelling of vulva (stitches). In addition to the above instructions, the following additional should be followed: 1. No heavy lifting or straining (exercising) until after 6 week checkup. 2. Keep abdominal incision clean and dry: You may wear a dressing if more comfortable. 3. Make office appointment for 2 weeks after delivery date. Discharge Disposition: HOME SELF-CARE
[2024-02-21] MEDS ORDERED: FERROUS SULFATE 325 MG TAB PO SCH (12:30)
== END 2024-02-21 13:25 | disposition home or self-care (01) | DRG 807 ==
LOC: 4FBP 15:36
PROVIDERS: ADMIT Obstetrics & Gynecology; ATTEND Obstetrics & Gynecology
PROC: 10907ZC Drainage of Amniotic Fluid, Therapeutic from Products of Conception, Via Natural or Artificial Opening (ICD-10-PCS; 2024-02-19)
PROC: 3E033VJ Introduction of Other Hormone into Peripheral Vein, Percutaneous Approach (ICD-10-PCS; 2024-02-19)
PROC: 4A1HXCZ Monitoring of Products of Conception, Cardiac Rate, External Approach (ICD-10-PCS; 2024-02-19)
PROC: 10E0XZZ Delivery of Products of Conception, External Approach (ICD-10-PCS; principal; 2024-02-20)
PROC: 0KQM0ZZ Repair Perineum Muscle, Open Approach (ICD-10-PCS; 2024-02-20)
DX: O16.4 Unspecified maternal hypertension, complicating childbirth (principal); Z37.0 Single live birth; O36.63X0 Maternal care for excessive fetal growth, third trimester, not applicable or unspecified; O69.81X0 Labor and delivery complicated by cord around neck, without compression, not applicable or unspecified; O70.1 Second degree perineal laceration during delivery; Z3A.38 38 weeks gestation of pregnancy
CPT/HCPCS: 59200; 85025; 86850; 86900; 86901